=== PATIENT | female | born 1965 | race Caucasian/White ===

== ENCOUNTER 2019-12-26 10:36 | Emergency (ER) | payer MEDICAID, OTHER ==
[~2019-12-26] VITALS: Ht 165.1 cm; Wt 68.2 kg
[~2019-12-26 10:36] MED LIST: RISP.5 PO
[2019-12-26 10:49] VITALS: BP 103/68
[2019-12-26] MEDS ORDERED: RISP.5 PO (10:56)
== END 2019-12-26 14:22 | disposition home or self-care (01) ==
LOC: EMS 10:38
DX: F20.9 Schizophrenia, unspecified (principal); M79.672 Pain in left foot; M79.671 Pain in right foot; F31.9 Bipolar disorder, unspecified; F12.90 Cannabis use, unspecified, uncomplicated; Z79.899 Other long term (current) drug therapy

== ENCOUNTER 2020-02-22 19:06 | Inpatient (IN) | payer MEDICAID, OTHER ==
[~2020-02-22] VITALS: Ht 157.5 cm; Wt 62.1 kg
[2020-02-22] MEDS ORDERED: LORazepam 2 MG/ML VIAL IM ONE (19:30)
[2020-02-22] MEDS ORDERED: HALOPERIDOL LACTATE 5 MG/ML VIAL IM ONE (19:30)
[2020-02-22] MEDS ORDERED: DiphenhydrAMINE HCL 50 MG/ML VIAL IM ONE (19:30)
[2020-02-22 22:29] LABS: AMPHET/METH SCREEN,URINE NEGATIVE (NEGATIVE); BARBITURATE SCREEN, URINE NEGATIVE (NEGATIVE); BENZODIAZEPINES SCREEN,URINE NEGATIVE (NEGATIVE); CANNABINOID SCREEN,URINE POSITIVE (NEGATIVE); COCAINE SCREEN,URINE NEGATIVE (NEGATIVE); METHADONE SCREEN, URINE NEGATIVE (NEGATIVE); OPIATE SCREEN,URINE NEGATIVE (NEGATIVE); PHENCYCLIDINE SCREEN,URINE NEGATIVE (NEGATIVE)
[2020-02-23] MEDS ORDERED: ZOLPIDEM TARTRATE 10 MG TABLET PO PRN (00:45)
[2020-02-23] MEDS ORDERED: HALOPERIDOL 5 MG TABLET PO PRN (00:45)
[2020-02-23 05:56] VITALS: BP 108/93
[2020-02-23] MEDS ORDERED: HALOPERIDOL LACTATE 5 MG/ML VIAL IM ONE (07:30)
[2020-02-23] MEDS ORDERED: LORazepam 2 MG/ML VIAL IM ONE (07:30)
[2020-02-23] MEDS ORDERED: DiphenhydrAMINE HCL 50 MG/ML VIAL IM ONE (07:30)
[2020-02-23] MEDS ORDERED: PETROLATUM,WHITE 28 GM JELLY TP PRN (14:30)
[2020-02-23] MEDS ORDERED: ONDANSETRON HCL 4 MG TABLET PO PRN (14:30)
[2020-02-23] MEDS ORDERED: NICOTINE 14 MG/24 HOUR PATCH TD PRN (14:30)
[2020-02-23] MEDS ORDERED: LOPERAMIDE HCL 2 MG CAPSULE PO PRN (14:30)
[2020-02-23] MEDS ORDERED: CloNIDine HCL 0.1 MG TABLET PO PRN (14:30)
[2020-02-23] MEDS ORDERED: ALBUTEROL SULFATE HFA 90 MCG/PUFF 8 GM INHALER IH PRN (14:30)
[2020-02-23] MEDS ORDERED: IBUPROFEN 400 MG TABLET PO PRN (14:30)
[2020-02-23] MEDS ORDERED: MAGNESIUM HYDROXIDE SUSPENSION 30 ML UDCUP PO PRN (14:30)
[2020-02-23] MEDS ORDERED: DOCUSATE SODIUM 100 MG CAPSULE PO PRN (14:30)
[2020-02-23] MEDS ORDERED: RisperiDONE 2 MG TABLET PO SCH (21:00)
[2020-02-24 08:42] VITALS: BP 121/76
[2020-02-24] MEDS: RisperiDONE 2 MG TABLET PO SCH ×2 (11:46→21:22)
[2020-02-24 17:57] VITALS: BP 104/64
[2020-02-25] MEDS: RisperiDONE 2 MG TABLET PO SCH ×3 (08:45→21:00)
[2020-02-25 08:56] VITALS: BP 103/59
[2020-02-25 17:14] VITALS: BP 102/70
[2020-02-26] MEDS ORDERED: LORazepam 2 MG/ML VIAL ONE (05:07)
[2020-02-26] MEDS ORDERED: HALOPERIDOL LACTATE 5 MG/ML VIAL ONE (05:08)
[2020-02-26] MEDS ORDERED: DiphenhydrAMINE HCL 50 MG/ML VIAL ONE (05:08)
[2020-02-26] MEDS ORDERED: DiphenhydrAMINE HCL 50 MG/ML VIAL IM ONE (05:15)
[2020-02-26] MEDS ORDERED: LORazepam 2 MG/ML VIAL IM ONE (05:15)
[2020-02-26] MEDS ORDERED: HALOPERIDOL LACTATE 5 MG/ML VIAL IM ONE (05:15)
[2020-02-26] MEDS: RisperiDONE 2 MG TABLET PO SCH ×2 (09:00→20:46)
[2020-02-26 16:13] VITALS: BP 100/59
[2020-02-27 08:27] VITALS: BP 114/73
[2020-02-27] MEDS ORDERED: DiphenhydrAMINE HCL 50 MG/ML VIAL IM ONE (09:00)
[2020-02-27] MEDS ORDERED: LORazepam 2 MG/ML VIAL IM ONE (09:00)
[2020-02-27] MEDS ORDERED: HALOPERIDOL LACTATE 5 MG/ML VIAL IM ONE (09:00)
[2020-02-27] MEDS: RisperiDONE 2 MG TABLET PO SCH ×2 (09:00→21:00)
[2020-02-27 16:47] VITALS: BP 110/82
[2020-02-28] MEDS ORDERED: LORazepam 2 MG/ML VIAL IM ONE (04:45)
[2020-02-28] MEDS ORDERED: DiphenhydrAMINE HCL 50 MG/ML VIAL IM ONE (04:45)
[2020-02-28] MEDS ORDERED: HALOPERIDOL LACTATE 5 MG/ML VIAL IM ONE (04:45)
[2020-02-28] MEDS: RisperiDONE 2 MG TABLET PO SCH ×2 (09:00→20:11)
[2020-02-28 17:40] VITALS: BP 113/78
[2020-02-29 07:08] VITALS: BP 118/70
[2020-02-29 08:22] VITALS: BP 102/84
[2020-02-29] MEDS: RisperiDONE 2 MG TABLET PO SCH ×2 (09:00→21:00)
[2020-02-29 16:00] VITALS: BP 124/72
[2020-03-01 00:20] VITALS: BP 142/88
[2020-03-01] MEDS: RisperiDONE 2 MG TABLET PO SCH ×2 (09:00→21:00)
[2020-03-02 02:27] VITALS: BP 131/84
[2020-03-02] MEDS: ACETAMINOPHEN 325 MG TABLET PO PRN (02:49)
[2020-03-02] MEDS: GuaiFENesin/D-METHORPHAN [SUGAR-FREE] 200-20MG/10 ML SYRUP UDCUP PO PRN (03:21)
[2020-03-02 03:48] VITALS: BP 130/78
[2020-03-02] MEDS: RisperiDONE 2 MG TABLET PO SCH ×3 (09:00→21:00)
[2020-03-02 16:21] VITALS: BP 124/78
[2020-03-03] MEDS: RisperiDONE 2 MG TABLET PO SCH ×2 (08:18→21:00)
[2020-03-03 08:37] VITALS: BP 98/74
[2020-03-03] MEDS ORDERED: LORazepam 2 MG/ML VIAL IM ONE (08:45)
[2020-03-03] MEDS ORDERED: DiphenhydrAMINE HCL 50 MG/ML VIAL IM ONE (08:45)
[2020-03-03] MEDS ORDERED: HALOPERIDOL LACTATE 5 MG/ML VIAL IM ONE (08:45)
[2020-03-03 17:39] VITALS: BP 117/71
[2020-03-04] MEDS ORDERED: DiphenhydrAMINE HCL 50 MG/ML VIAL ONE (03:47)
[2020-03-04] MEDS ORDERED: LORazepam 2 MG/ML VIAL ONE (03:47)
[2020-03-04] MEDS ORDERED: HALOPERIDOL LACTATE 5 MG/ML VIAL ONE (03:47)
[2020-03-04] MEDS ORDERED: DiphenhydrAMINE HCL 50 MG/ML VIAL IM ONE (04:00)
[2020-03-04] MEDS ORDERED: HALOPERIDOL LACTATE 5 MG/ML VIAL IM ONE (04:00)
[2020-03-04] MEDS ORDERED: LORazepam 2 MG/ML VIAL IM ONE (04:00)
[2020-03-04 08:26] VITALS: BP 106/68
[2020-03-04] MEDS: GuaiFENesin/D-METHORPHAN [SUGAR-FREE] 200-20MG/10 ML SYRUP UDCUP PO PRN (08:55)
[2020-03-04] MEDS: RisperiDONE 2 MG TABLET PO SCH ×2 (09:00→21:00)
[2020-03-04 16:14] VITALS: BP 121/66
[2020-03-05 08:28] VITALS: BP 103/64
[2020-03-05] MEDS: RisperiDONE 2 MG TABLET PO SCH ×2 (09:00→20:36)
[2020-03-05] MEDS: GuaiFENesin/D-METHORPHAN [SUGAR-FREE] 200-20MG/10 ML SYRUP UDCUP PO PRN ×2 (09:52→19:14)
[2020-03-05] MEDS: ACETAMINOPHEN 325 MG TABLET PO PRN (09:52)
[2020-03-05 16:00] VITALS: BP 106/68
[2020-03-06 00:56] VITALS: BP 124/85
[2020-03-06] MEDS: LORazepam 2 MG TABLET PO PRN ×2 (01:05→10:19)
[2020-03-06] MEDS: ACETAMINOPHEN 325 MG TABLET PO PRN ×2 (01:06→22:40)
[2020-03-06] MEDS: RisperiDONE 2 MG TABLET PO SCH ×2 (09:00→20:38)
[2020-03-06] MEDS: GuaiFENesin/D-METHORPHAN [SUGAR-FREE] 200-20MG/10 ML SYRUP UDCUP PO PRN ×2 (10:19→22:39)
[2020-03-06 16:14] VITALS: BP 110/73
[2020-03-07 01:15] VITALS: BP 116/78
[2020-03-07] MEDS: LORazepam 2 MG TABLET PO PRN ×2 (02:00→08:41)
[2020-03-07 08:31] VITALS: BP 118/72
[2020-03-07] MEDS: GuaiFENesin/D-METHORPHAN [SUGAR-FREE] 200-20MG/10 ML SYRUP UDCUP PO PRN ×2 (08:41→18:13)
[2020-03-07] MEDS: RisperiDONE 2 MG TABLET PO SCH ×2 (08:50→21:00)
[2020-03-07 16:00] VITALS: BP 117/70
[2020-03-07] MEDS: ACETAMINOPHEN 325 MG TABLET PO PRN (18:14)
[2020-03-08] MEDS: GuaiFENesin/D-METHORPHAN [SUGAR-FREE] 200-20MG/10 ML SYRUP UDCUP PO PRN ×2 (00:44→08:47)
[2020-03-08 01:58] VITALS: BP 127/78
[2020-03-08] MEDS: ACETAMINOPHEN 325 MG TABLET PO PRN (02:41)
[2020-03-08] MEDS: MAG HYDROX/AL HYDROX/SIMETH ES 30 ML SUSPENSION UDCUP PO PRN (03:11)
[2020-03-08 08:22] VITALS: BP 133/73
[2020-03-08] MEDS: RisperiDONE 2 MG TABLET PO SCH ×2 (08:48→21:00)
[2020-03-08 17:44] VITALS: BP 117/80
[2020-03-09 01:35] VITALS: BP 106/70
[2020-03-09] MEDS: RisperiDONE 2 MG TABLET PO SCH ×2 (08:45→21:00)
[2020-03-09] MEDS: MAG HYDROX/AL HYDROX/SIMETH ES 30 ML SUSPENSION UDCUP PO PRN (13:38)
[2020-03-09 16:33] VITALS: BP 103/75
[2020-03-09] MEDS ORDERED: LORazepam 2 MG/ML VIAL ONE (18:06)
[2020-03-09] MEDS ORDERED: DiphenhydrAMINE HCL 50 MG/ML VIAL ONE (18:07)
[2020-03-09] MEDS ORDERED: HALOPERIDOL LACTATE 5 MG/ML VIAL ONE (18:07)
[2020-03-09] MEDS ORDERED: DiphenhydrAMINE HCL 50 MG/ML VIAL IM ONE (18:15)
[2020-03-09] MEDS ORDERED: LORazepam 2 MG/ML VIAL IM ONE (18:15)
[2020-03-09] MEDS ORDERED: HALOPERIDOL LACTATE 5 MG/ML VIAL IM ONE (18:15)
[2020-03-10 08:21] VITALS: BP 112/63
[2020-03-10] MEDS: RisperiDONE 2 MG TABLET PO SCH ×2 (09:00→21:00)
[2020-03-10] MEDS ORDERED: HALOPERIDOL LACTATE 5 MG/ML VIAL ONE (13:20)
[2020-03-10] MEDS ORDERED: DiphenhydrAMINE HCL 50 MG/ML VIAL ONE (13:20)
[2020-03-10] MEDS ORDERED: LORazepam 2 MG/ML VIAL ONE (13:20)
[2020-03-10] MEDS ORDERED: HALOPERIDOL LACTATE 5 MG/ML VIAL IM ONE (13:30)
[2020-03-10] MEDS ORDERED: LORazepam 2 MG/ML VIAL IM ONE (13:30)
[2020-03-10] MEDS ORDERED: DiphenhydrAMINE HCL 50 MG/ML VIAL IM ONE ×2 (13:30→14:30)
[2020-03-11] MEDS: RisperiDONE 2 MG TABLET PO SCH ×2 (09:00→20:57)
[2020-03-11 16:59] VITALS: BP 106/65
[2020-03-12 00:55] VITALS: BP 139/70
[2020-03-12 06:55] VITALS: BP 128/72
[2020-03-12] MEDS: ACETAMINOPHEN 325 MG TABLET PO PRN (06:58)
[2020-03-12] MEDS: RisperiDONE 2 MG TABLET PO SCH (08:18)
[2020-03-12 08:27] VITALS: BP 127/66
[2020-03-12] MEDS ORDERED: RISP2TAB76 PO (10:53)
== END 2020-03-12 14:00 | disposition home or self-care (01) | DRG 750 ==
LOC: EMS 19:10 → B3A 02-23 03:57
PROVIDERS: ADMIT Psychiatry & Neurology Psychiatry; ATTEND Psychiatry & Neurology Child & Adolescent Psychiatry
DX: F25.0 Schizoaffective disorder, bipolar type (principal); I95.9 Hypotension, unspecified; Z91.19 Patient's noncompliance with other medical treatment and regimen; Z91.14 Patient's other noncompliance with medication regimen; F19.10 Other psychoactive substance abuse, uncomplicated; F15.10 Other stimulant abuse, uncomplicated; I10 Essential (primary) hypertension; F10.10 Alcohol abuse, uncomplicated; R10.13 Epigastric pain; Y90.9 Presence of alcohol in blood, level not specified; F12.10 Cannabis abuse, uncomplicated
CPT/HCPCS: 87081; 99291; J1200; J1630; J2060; J3230

== ENCOUNTER 2021-09-18 10:46 | Inpatient (IN) | payer MEDICAID ==
[~2021-09-18] VITALS: Ht 157.5 cm; Wt 82.3 kg
[~2021-09-18 10:46] MED LIST changes: -RISP.5 PO; +RISP2TAB76 PO
[2021-09-18] MEDS ORDERED: HALOPERIDOL LACTATE 5 MG/ML VIAL ONE (11:14)
[2021-09-18] MEDS ORDERED: LORazepam 2 MG/ML VIAL ONE (11:14)
[2021-09-18] MEDS ORDERED: DiphenhydrAMINE HCL 50 MG/ML VIAL ONE (11:14)
[2021-09-18] MEDS ORDERED: HALOPERIDOL LACTATE 5 MG/ML VIAL IM ONE (11:30)
[2021-09-18] MEDS ORDERED: DiphenhydrAMINE HCL 50 MG/ML VIAL IM ONE (11:30)
[2021-09-18] MEDS ORDERED: LORazepam 2 MG/ML VIAL IM ONE (11:30)
[2021-09-18 12:08] LABS: BASOPHILS % (AUTO) 0.3 % (0.0-2.0); EOSINOPHILS % (AUTO) 0.5 % (1.0-6.0); HEMATOCRIT 36.7 % (36-46); HEMOGLOBIN 12.4 g/dL (12.0-16.0); LYMPHOCYTES # (AUTO) 1.1 K/uL (1.0-4.8); MEAN CORPUSCULAR HEMOGLOBIN 30.1 pg (26.0-34.0); MEAN CORPUSCULAR HGB CONC 33.7 G/dL (31.0-37.0); MEAN CORPUSCULAR VOLUME 89 fL (80-100); MONOCYTES # (AUTO) 0.6 K/uL (0.1-1.0); MONOCYTES % (AUTO) 6.1 % (2.0-9.0); NEUTROPHILS % (AUTO) 82.1 % (40.0-70.0); PLATELET COUNT (AUTO) 290 K/uL (150-450); RED CELL DISTRIBUTION WIDTH 13.8 % (11.5-14.5)
[2021-09-18 12:19] LABS: ANION GAP 14 mmol/L (8-16); CARBON DIOXIDE 24 mmol/L (22-29); CHLORIDE 105 mmol/L (98-107); CREATININE 0.91 mg/dL (0.60-1.30); GLOMERULAR FILTR. RATE CALC > 60 mL/min (>60); GLUCOSE,RANDOM 108 mg/dL (70-110); POTASSIUM 3.3 mmol/L (3.5-5.1); SODIUM SERUM 143 mmol/L (136-145); UREA NITROGEN, BLOOD 16 mg/dL (7-18)
[2021-09-18 12:25] LABS: ALANINE AMINOTRANSFERASE 23 U/L (12-78); ALBUMIN 4.1 g/dL (3.4-5.0); ALKALINE PHOSPHATASE 85 U/L (46-116); ASPARTATE AMINOTRANSFERASE 21 U/L (15-37); BILIRUBIN,TOTAL 0.7 mg/dL (0.1-1.0); TOTAL PROTEIN, SERUM 7.6 g/dL (6.4-8.2)
[2021-09-18] MEDS ORDERED: ZOLPIDEM TARTRATE 10 MG TABLET PO PRN (13:30)
[2021-09-18 14:15] LABS: COVID AG,FIA SOURCE NASOPHARYNGEAL
[2021-09-19 01:51] LABS: CHOL/HDL RATIO 2.9 (3.9-5.7); CHOLESTEROL 183 mg/dL (131-200); FREE T4 (FREE THYROXINE) 1.31 ng/dL (0.76-1.46); HDL CHOLESTEROL 64 mg/dL (40-60); LDL CHOL (CALC.) 107 mg/dL (0-130); THYROID STIMULATING HORMONE 0.95 uIU/mL (0.36-3.74); TRIGLYCERIDES 61 mg/dL (15-150)
[2021-09-19 09:02] VITALS: BP 146/82
[2021-09-19] MEDS ORDERED: DOCUSATE SODIUM 100 MG CAPSULE PO PRN (09:15)
[2021-09-19] MEDS ORDERED: GuaiFENesin/D-METHORPHAN [SUGAR-FREE] 200-20MG/10 ML SYRUP UDCUP PO PRN (09:15)
[2021-09-19] MEDS ORDERED: ONDANSETRON HCL 4 MG TABLET PO PRN (09:15)
[2021-09-19] MEDS ORDERED: IBUPROFEN 400 MG TABLET PO PRN (09:15)
[2021-09-19] MEDS ORDERED: NICOTINE 14 MG/24 HOUR PATCH TD PRN (09:15)
[2021-09-19] MEDS ORDERED: CloNIDine HCL 0.1 MG TABLET PO PRN (09:15)
[2021-09-19] MEDS ORDERED: LOPERAMIDE HCL 2 MG CAPSULE PO PRN (09:15)
[2021-09-19] MEDS ORDERED: ALBUTEROL SULFATE HFA 90 MCG/PUFF 8 GM INHALER IH PRN (09:15)
[2021-09-19] MEDS ORDERED: PETROLATUM,WHITE 28 GM JELLY TP PRN (09:15)
[2021-09-19] MEDS ORDERED: ACETAMINOPHEN 325 MG TABLET PO PRN (09:15)
[2021-09-19] MEDS ORDERED: MAG HYDROX/AL HYDROX/SIMETH ES 30 ML SUSPENSION UDCUP PO PRN (09:15)
[2021-09-19] MEDS ORDERED: MAGNESIUM HYDROXIDE SUSPENSION 30 ML UDCUP PO PRN (09:15)
[2021-09-19] MEDS: RisperiDONE 2 MG TABLET PO SCH ×2 (10:15→20:15)
[2021-09-19 16:26] VITALS: BP 124/83
[2021-09-19] MEDS: LORazepam 2 MG TABLET PO PRN (19:56)
[2021-09-20 08:18] VITALS: BP 134/95
[2021-09-20] MEDS: RisperiDONE 2 MG TABLET PO SCH ×2 (08:36→21:08)
[2021-09-20 16:10] VITALS: BP 128/68
[2021-09-20] MEDS: HALOPERIDOL 5 MG TABLET PO PRN (18:17)
[2021-09-20] MEDS: LORazepam 2 MG TABLET PO PRN (18:17)
[2021-09-21 08:00] VITALS: BP 115/77
[2021-09-21] MEDS: RisperiDONE 2 MG TABLET PO SCH ×2 (10:47→20:03)
[2021-09-21 16:12] VITALS: BP 121/74
[2021-09-21] MEDS: LORazepam 2 MG TABLET PO PRN (20:03)
[2021-09-22 08:34] VITALS: BP 130/90
[2021-09-22] MEDS: RisperiDONE 2 MG TABLET PO SCH ×2 (10:04→20:35)
[2021-09-22] MEDS ORDERED: BENZOCAINE 10% 7 GM GEL TP PRN (13:45)
[2021-09-22 16:07] VITALS: BP 129/81
[2021-09-22] MEDS: LORazepam 2 MG TABLET PO PRN (16:40)
[2021-09-22] MEDS: AMOX TR/POT CLAV 500 MG/125 MG TABLET PO SCH (16:40)
[2021-09-22] MEDS: HALOPERIDOL 5 MG TABLET PO PRN (16:40)
[2021-09-23] MEDS: AMOX TR/POT CLAV 500 MG/125 MG TABLET PO SCH ×3 (07:44→16:42)
[2021-09-23] MEDS: RisperiDONE 2 MG TABLET PO SCH ×2 (07:45→20:27)
[2021-09-23 08:18] VITALS: BP 119/76
[2021-09-23 16:22] VITALS: BP 113/60
[2021-09-23] MEDS: HALOPERIDOL 5 MG TABLET PO PRN (16:42)
[2021-09-23] MEDS: LORazepam 2 MG TABLET PO PRN (16:42)
[2021-09-24 08:20] VITALS: BP 115/74
[2021-09-24] MEDS: RisperiDONE 2 MG TABLET PO SCH (10:34)
[2021-09-24] MEDS: AMOX TR/POT CLAV 500 MG/125 MG TABLET PO SCH ×4 (10:35→17:24)
[2021-09-24] MEDS ORDERED: AMOX1TAB15 PO (13:58)
== END 2021-09-24 17:00 | disposition short-term general hospital (02) | DRG 885 ==
LOC: EMS 10:46 → 3EC 09-19 04:42
PROVIDERS: ADMIT Psychiatry & Neurology Psychiatry; ATTEND Psychiatry & Neurology Psychiatry
DX: F20.0 Paranoid schizophrenia (principal); F31.9 Bipolar disorder, unspecified; I10 Essential (primary) hypertension; Z79.899 Other long term (current) drug therapy; E87.6 Hypokalemia; R45.850 Homicidal ideations; F12.10 Cannabis abuse, uncomplicated; Z20.822 Contact with and (suspected) exposure to COVID-19
CPT/HCPCS: 80053; 80061; 84439; 84443; 85025; 87081; 99285; G0480; J1200; J1630; J2060

== ENCOUNTER 2025-08-29 18:44 | Inpatient (IN) | payer MEDICAID, OTHER ==
[~2025-08-29] VITALS: Ht 160 cm; Wt 101.6 kg
[~2025-08-29 18:44] MED LIST changes: +AMOX1TAB15 PO
[2025-08-29 20:18] LABS: COVID AG,FIA SOURCE NASAL SWAB
[2025-08-29 20:19] LABS: PLATELET COUNT (AUTO) 341 K/uL (150-450); RED BLOOD CELL COUNT(AUTO) 5.14 MIL/uL (4.00-5.20); RED CELL DISTRIBUTION WIDTH 14.6 % (11.5-14.5); WHITE BLOOD COUNT (AUTO) 9.8 K/uL (4.5-11.0)
[2025-08-29 20:20] LABS: SARS-COV2 (COVID) ANTIGEN,FIA Negative (Negative)
[2025-08-29 20:31] LABS: CALCIUM, TOTAL 9.4 mg/dL (8.8-10.5); CREATININE 0.60 mg/dL (0.60-1.30); GLOMERULAR FILTR. RATE CALC > 60 mL/min (>60); GLUCOSE,RANDOM 105 mg/dL (70-110); SODIUM SERUM 141 mmol/L (136-145); UREA NITROGEN, BLOOD 9 mg/dL (7-18)
[2025-08-29 22:50] VITALS: O2SAT 98
[2025-08-29 23:55] VITALS: BP 97/62; PULSE 97; RESP 18; TEMP 98.2; O2SAT 98
[2025-08-30] MEDS: ZOLPIDEM TARTRATE 10 MG TABLET PO PRN (00:06)
[2025-08-30] MEDS ORDERED: BACITRACIN 28 GM OINTMENT TP PRN (07:45)
[2025-08-30] MEDS ORDERED: PETROLATUM,WHITE 28 GM JELLY TP PRN (07:45)
[2025-08-30] MEDS ORDERED: DOCUSATE SODIUM 100 MG CAPSULE PO PRN (07:45)
[2025-08-30] MEDS ORDERED: IBUPROFEN 600 MG TABLET PO PRN (07:45)
[2025-08-30] MEDS ORDERED: ACETAMINOPHEN 325 MG TABLET PO PRN (07:45)
[2025-08-30] MEDS ORDERED: ALBUTEROL SULFATE HFA 90 MCG/PUFF 8 GM INHALER IH PRN (07:45)
[2025-08-30] MEDS ORDERED: MAG HYDROX/ALUMINUM HYD/SIMETH ES 30 ML SUSPENSION UDCUP PO PRN (07:45)
[2025-08-30] MEDS ORDERED: MAGNESIUM HYDROXIDE SUSPENSION 30 ML UDCUP PO PRN (07:45)
[2025-08-30] MEDS ORDERED: OMEPRAZOLE 20 MG CAPSULE PO PRN (07:45)
[2025-08-30] MEDS ORDERED: ONDANSETRON 4 MG TABLET PO PRN (07:45)
[2025-08-30] MEDS ORDERED: BENZOCAINE/MENTHOL [CEPACOL] LOZENGE PO PRN (07:45)
[2025-08-30 07:49] LABS: PLATELET COUNT (AUTO) 339 K/uL (150-450); RED BLOOD CELL COUNT(AUTO) 5.02 MIL/uL (4.00-5.20); RED CELL DISTRIBUTION WIDTH 14.3 % (11.5-14.5); WHITE BLOOD COUNT (AUTO) 7.6 K/uL (4.5-11.0)
[2025-08-30 08:20] LABS: ASPARTATE AMINOTRANSFERASE 18 U/L (15-37); CALCIUM, TOTAL 9.2 mg/dL (8.8-10.5); CHOL/HDL RATIO 4.8 (3.9-5.7); CREATININE 0.70 mg/dL (0.60-1.30); GLOMERULAR FILTR. RATE CALC > 60 mL/min (>60); GLUCOSE,RANDOM 97 mg/dL (70-110); LDL CHOL (CALC.) 127 mg/dL (0-130); SODIUM SERUM 140 mmol/L (136-145); TOTAL PROTEIN, SERUM 8.2 g/dL (6.4-8.2); UREA NITROGEN, BLOOD 14 mg/dL (7-18)
[2025-08-30 10:52] VITALS: BP 109/78; PULSE 87; RESP 17; TEMP 98.4; O2SAT 96
[2025-08-30] MEDS: LITHIUM CARBONATE 300 MG CAPSULE PO SCH (16:44)
[2025-08-30] MEDS: OLANZapine 7.5 MG TABLET PO SCH (20:24)
[2025-08-30 21:24] VITALS: BP 130/69; PULSE 66; RESP 18; TEMP 97.6; O2SAT 100
[2025-08-31 08:11] VITALS: BP 127/90; PULSE 94; RESP 18; TEMP 97.9; O2SAT 100
[2025-08-31] MEDS: LOPERAMIDE HCL 2 MG CAPSULE PO PRN (20:05)
[2025-08-31 20:17] VITALS: BP 100/72; PULSE 93; RESP 18; TEMP 97.5; O2SAT 98
[2025-09-01 10:44] VITALS: BP 124/84; PULSE 90; RESP 18; TEMP 98.3; O2SAT 98
[2025-09-01 20:21] VITALS: BP 115/60; PULSE 100; RESP 18; TEMP 98.2; O2SAT 95
[2025-09-02 09:43] VITALS: BP 108/66; PULSE 64; RESP 18; TEMP 97.9; O2SAT 96
[2025-09-02 21:01] VITALS: BP 109/64; PULSE 81; RESP 18; TEMP 98.1; O2SAT 97
[2025-09-03] MEDS ORDERED: LITH300C3 PO (10:37)
[2025-09-03] MEDS ORDERED: OLAN7.5T22 PO (10:38)
[2025-09-03 12:07] VITALS: BP 122/105; PULSE 100; RESP 18; TEMP 98; O2SAT 98
== END 2025-09-03 13:34 | DRG 753 ==
LOC: EMS 18:44 → 3EI 22:24
PROVIDERS: ADMIT Psychiatry & Neurology Psychiatry; ATTEND Psychiatry & Neurology Psychiatry
DX: F31.9 Bipolar disorder, unspecified (principal); Z91.148 Patient's other noncompliance with medication regimen for other reason; E66.9 Obesity, unspecified; F41.9 Anxiety disorder, unspecified; G47.00 Insomnia, unspecified; I10 Essential (primary) hypertension; Z20.822 Contact with and (suspected) exposure to COVID-19; K59.00 Constipation, unspecified; Z68.39 Body mass index [BMI] 39.0-39.9, adult
CPT/HCPCS: 80048; 80053; 80061; 80178; 83036; 84436; 84443; 85025; 87081; 99285; G0480